=== PATIENT | male | born 1970 | race Caucasian/White ===

== ENCOUNTER 2018-03-06 13:04 | Emergency (ER) | payer BC, OTHER ==
[2018-03-06 13:06] VITALS: BMI 25.7
[2018-03-06 13:27] LABS: BASO # 0.03 K/mm3 (0.0-2.0); BASO % 0.4 % (0.0-3.0); EOS # 0.1 (0.0-0.7); EOS % 0.7 % (1.5-5.0); GRAN # 4.15 (1.4-6.5); GRAN % 61.3 % (50.0-68.0); HEMOGLOBIN 15.5 g/dL (14.0-18.0); MEAN CORPUSCULAR HEMOGLOBIN 30.9 pg (25.0-35.0); MEAN CORPUSCULAR HGB CONC 35.1 g/dl (31.0-37.0); MEAN PLATELET VOLUME 10.6 fl (7.0-11.0); MONO # 0.6 (0.1-0.6); MONO % 8.6 % (1.0-6.0); RBC 5.02 10^6/uL (3.5-6.1); RED CELL DISTRIBUTION WIDTH 13.3 % (11.5-14.5); WHITE BLOOD COUNT 6.8 10^3/ul (4.5-11.0)
[2018-03-06 13:36] LABS: INR 0.92; PARTIAL THROMBOPLASTIN TIME 32.3 Seconds (25.1-36.5); PROTHROMBIN TIME 10.5 SECONDS (9.4-12.5)
[2018-03-06 13:37] LABS: ALB/GLOB RATIO 1.4 (1.1-1.8); ALBUMIN 4.6 g/dL (3.0-4.8); ALT/SGPT 51 U/L (7-56); AST/SGOT 47 U/L (17-59); BLOOD UREA NITROGEN 9 mg/dL (7-21); CALCIUM 9.5 mg/dL (8.4-10.5); GFR AFRICAN-AMERICAN > 60; GFR NON-AFRICAN AMERICAN > 60
--- NOTE | 2018-03-06 13:41 | RAD ---
Date of service: 03/06/2018 HISTORY: chest pain COMPARISON: 03/24/2028. FINDINGS: LUNGS: The lungs are well inflated and clear. PLEURA: No significant pleural effusion identified, no pneumothorax apparent. CARDIOVASCULAR: Normal. OSSEOUS STRUCTURES: No significant abnormalities. VISUALIZED UPPER ABDOMEN: Normal. OTHER FINDINGS: None. IMPRESSION: No active pulmonary disease.
--- NOTE | 2018-03-06 13:46 | ED PDOC ---
Arrival/HPI - General Chief Complaint: Chest Pain Time Seen by Provider: 03/06/18 13:08 Historian: Patient - History of Present Illness Narrative History of Present Illness (Text): 03/06/18 13:38 47yo male with pmhx of hypertension, hyperlipdemia, CAD with cardiac stent 2013 present with complaint of chest pain that radiates to his right arm. He describes pain as "pressure". states pain started 2weeks ago, intermittent and then constant for a week . States he was seen at [facility] a week ago and was DC after a negative stress test. States he came here today because he continue to have chest pain. He states that he sees Dr. Garibay, and missed his appointment this year. He denies SOB, diaphoresis, fever, chills, nausea, vomiting, dizziness, abdominal pain, ripping/tearing upper back pain, LE edema, HERRMANN, calf pain, cough, recent travel. Past Medical History - Provider Review Nursing Documentation Reviewed: Yes - Infectious Disease Hx of Infectious Diseases: None - Tetanus Immunization Tetanus Immunization: Unknown - Past Medical History Past Medical History: No Previous - Cardiac Hx Hypertension: Yes Other/Comment: stent placement x 1 - Pulmonary Hx Respiratory Disorders: No - Neurological Hx Neurological Disorder: No - HEENT Hx HEENT Disorder: No - Renal Hx Renal Disorder: No - Endocrine/Metabolic Hx Endocrine Disorders: No - Hematological/Oncological Hx Blood Disorders: No - Integumentary Hx Dermatological Disorder: No - Musculoskeletal/Rheumatological Hx Falls: No Other/Comment: L HAND FX - Gastrointestinal Hx Gastrointestinal Disorders: No - Genitourinary/Gynecological Hx Genitourinary Disorders: No - Psychiatric Hx Psychophysiologic Disorder: No Hx Depression: No Hx Emotional Abuse: No Hx Physical Abuse: No Hx Substance Use: No - Past Surgical History Past Surgical History: No Previous - Surgical History Hx Cardiac Catheterization: Yes Hx Coronary Stent: Yes - Anesthesia Hx Anesthesia: Yes Hx Anesthesia Reactions: No - Suicidal Assessment Feels Threatened In Home Enviroment: No Family/Social History - Physician Review Nursing Documentation Reviewed: Yes Family/Social History: Unknown Family HX Smoking Status: Former Smoker Hx Alcohol Use: Yes Hx Substance Use: No Allergies/Home Meds Allergies/Adverse Reactions: Allergies No Known Allergies Allergy (Verified 10/18/14 12:19) Home Medications: Home Meds Medication Instructions Recorded Confirmed Aspirin [Adult Aspirin] 1 tab PO DAILY 03/06/18 03/06/18 Losartan Potassium [Losartan 1 tab PO DAILY 03/06/18 03/06/18 Potassium] Metoprolol Succinate XL [Toprol XL] 1 tab PO DAILY 03/06/18 03/06/18 Simvastatin [Zocor] 1 tab PO HS 03/06/18 03/06/18 Review of Systems - Physician Review All systems were reviewed & negative as marked: Yes - Review of Systems Constitutional: Normal Eyes: Normal ENT: Normal Respiratory: Normal Cardiovascular: Chest Pain. absent: Palpitations, Edema, Calf Pain, HERRMANN Gastrointestinal: Normal Genitourinary Male: Normal Musculoskeletal: Normal Skin: Normal Neurological: Normal Endocrine: Normal Hemo/Lymphatic: Normal Psychiatric: Normal Physical Exam Vital Signs Reviewed: Yes Vital Signs Temp Pulse Resp BP Pulse Ox 03/06/18 19:55 18 164/96 H 98 03/06/18 19:52 61 20 167/94 H 98 03/06/18 19:05 66 150/88 03/06/18 18:26 98.2 F 66 18 142/77 96 03/06/18 16:21 98.0 F 68 18 140/70 97 03/06/18 13:48 98.2 F 62 18 145/94 H 99 Temperature: Afebrile Blood Pressure: Normal Pulse: Regular Respiratory Rate: Normal Appearance: Positive for: Well-Appearing, Non-Toxic, Comfortable Pain Distress: None Mental Status: Positive for: Alert and Oriented X 3 - Systems Exam Head: Present: Atraumatic, Normocephalic Pupils: Present: PERRL Extroacular Muscles: Present: EOMI Conjunctiva: Present: Normal Mouth: Present: Moist Mucous Membranes Neck: Present: Normal Range of Motion Respiratory/Chest: Present: Clear to Auscultation, Good Air Exchange. No: Respiratory Distress, Accessory Muscle Use, Wheezes, Decreased Breath Sounds, Rales, Retracting, Rhonchi Cardiovascular: Present: Regular Rate and Rhythm, Normal S1, S2. No: Murmurs Abdomen: No: Tenderness, Distention, Peritoneal Signs Back: Present: Normal Inspection Upper Extremity: Present: Normal Inspection. No: Cyanosis, Edema Lower Extremity: Present: Normal Inspection. No: Edema Neurological: Present: GCS=15, CN II-XII Intact, Speech Normal Skin: Present: Warm, Dry, Normal Color. No: Rashes Psychiatric: Present: Alert, Oriented x 3, Normal Insight, Normal Concentration Medical Decision Making ED Course and Treatment: 03/06/18 20:32 Pt presented to ED for chest pain x two weeks. Lab was ordered and he had elevated troponin EKG NSR @61bpm CXR NAD ASA was given in ED. Pt with history of cardiac stent in 2014 here in [place]. Case was DW Dr. Melgar and pt was admitted to her serivce. After Dr. Newman who works with Dr. Melgar DC with Dr. Guerrero he requested that pt be transferred to [facility] in [place]. Dr. Newman spoke with the transfer center and pt was transferred to [facility], [place]. - Lab Interpretations Lab Results: 03/06/18 13:00 03/06/18 13:00 Lab Results 03/06/18 13:00: Sodium 139, Potassium 4.3, Chloride 100, Carbon Dioxide 29, Anion Gap 15, BUN 9, Creatinine 0.9, Est GFR ( Amer) > 60, Est GFR (Non- Af Amer) > 60, Random Glucose 126 H, Calcium 9.5, Magnesium 1.8, Total Bilirubin 0.6, AST 47, ALT 51, Alkaline Phosphatase 63, Lactate Dehydrogenase 448, Total Creatine Kinase 155, Troponin I 0.25 H*, Total Protein 7.8, Albumin 4.6, Globulin 3.2, Albumin/Globulin Ratio 1.4 03/06/18 13:00: PT 10.5, INR 0.92, APTT 32.3 03/06/18 13:00: WBC 6.8 D, RBC 5.02, Hgb 15.5, Hct 44.2, MCV 88.0, MCH 30.9, MCHC 35.1, RDW 13.3, Plt Count 186, MPV 10.6, Gran % 61.3, Lymph % (Auto) 29.0, [place] % (Auto) 8.6 H, Eos % (Auto) 0.7 L, Baso % (Auto) 0.4, Gran # 4.15, Lymph # (Auto) 2.0, [place] # (Auto) 0.6, Eos # (Auto) 0.1, Baso # (Auto) 0.03 - RAD Interpretation Radiology Orders: 03/06/18 13:14 CHEST PORTABLE [RAD] Stat - Medication Orders Current Medication Orders: Discontinued Medications Aspirin (Aspirin) 325 mg PO STAT STA Stop: 03/06/18 13:14 Last Admin: 03/06/18 14:26 Dose: 325 mg Aspirin (Ecotrin) 81 mg PO DAILY GOMEZ Atorvastatin Calcium (Lipitor) 20 mg PO HS GOMEZ Clopidogrel Bisulfate (Plavix) 300 mg PO STAT STA Stop: 03/06/18 18:27 Last Admin: 03/06/18 19:04 Dose: 300 mg Heparin Sodium (Porcine) (Heparin) 6,000 units 70 units/kg (6000 units) IV ONCE ONE PRN Reason: Protocol Stop: 03/06/18 14:37 Last Admin: 03/06/18 15:16 Dose: 6,000 units eMAR Start Stop Document 03/06/18 15:16 [email or web address] (Rec: 03/06/18 15:17 [email or web address] [id number]) Intravenous Solution Start Date 03/06/18 Start Time 15:17 MAR aPTT Document 03/06/18 15:16 [email or web address] (Rec: 03/06/18 15:17 [email or web address] [id number]) aPTT aPTT (secs) 32.3 Heparin Sodium/Sodium Chloride (Heparin 86578 Units/250ml 1/2 Normal Saline) 25 ,000 units in 250 mls @ 10.342 mls/hr IV .Q24H GOMEZ; 12 UNITS/KG/HR PRN Reason: Protocol Last Admin: 03/06/18 15:37 Dose: Heparin Sodium/Sodium Chloride (Heparin 37644 Units/250ml 1/2 Normal Saline) 25 ,000 units in 250 mls @ 10.211 mls/hr IV .Q24H GOMEZ; 12 UNITS/KG/HR PRN Reason: Protocol Last Admin: 03/06/18 15:28 Dose: 12 units/kg/hr, 10.211 mls/hr eMAR Start Stop Document 03/06/18 15:28 [email or web address] (Rec: 03/06/18 15:29 [email or web address] [id number]) Intravenous Solution Start Date 03/06/18 Start Time 15:29 MAR aPTT Document 03/06/18 15:28 [email or web address] (Rec: 03/06/18 15:29 [email or web address] [id number]) aPTT aPTT (secs) 32.3 Titration Intervention Document 03/06/18 15:28 [email or web address] (Rec: 03/06/18 15:29 [facility] [id number]) Titration Intake Waste Amount 0 Container Volume 250 Titration Dosing Titration Dose 12 IV Rate 10.211 Intake/Decrease Started Losartan Potassium (Cozaar) 100 mg PO DAILY GOMEZ Metoprolol Succinate (Toprol Xl) 50 mg PO DAILY GOMEZ Metoprolol Tartrate (Lopressor) 2.5 mg IVP ONCE ONE Stop: 03/06/18 18:24 Last Admin: 03/06/18 19:05 Dose: 2.5 mg IVP Administration Document 03/06/18 19:05 [facility] (Rec: 03/06/18 19:05 [facility] [id number]) Charges for Administration # of IVP Administrations 1 MAR Pulse and Blood Pressure Document 03/06/18 19:05 [email or web address] (Rec: 03/06/18 19:05 [facility] [id number]) Pulse Pulse Rate (60-90) 66 Blood Pressure Blood Pressure (100/60-150/90) 150/88 Morphine Sulfate (Morphine) 1 mg IVP Q4H PRN PRN Reason: Pain, severe (8-10) Last Admin: 03/06/18 15:33 Dose: 1 mg MAR Pain Assessment Document 03/06/18 15:33 [email or web address] (Rec: 03/06/18 15:33 [facility] [id number]) Pain Reassessment Is this a pain reassessment? No Sleep Is patient sleeping during reassessment? No Presence of Pain Presence of Pain Yes Pain Scale Used Pain Scale Used Numeric Location Pain Location Body Site Chest Description Description Constant Intensity of Pain at present 6 Pain Behavior Facial Grimacing Alleviating Factors/Management Medication Techniques Alleviating Factors Medication IVP Administration Document 03/06/18 15:33 [email or web address] (Rec: 03/06/18 15:33 [facility] [id number]) Charges for Administration # of IVP Administrations 1 Morphine Sulfate (Morphine) 2 mg IVP STAT ONE Stop: 03/06/18 18:20 Last Admin: 03/06/18 18:40 Dose: 2 mg MAR Pain Assessment Document 03/06/18 18:40 GMD (Rec: 03/06/18 18:41 [id number]) Pain Reassessment Is this a pain reassessment? No IVP Administration Document 03/06/18 18:40 GMD (Rec: 03/06/18 18:41 GMD [facility] [id number]) Charges for Administration # of IVP Administrations 1 Nitroglycerin (Nitrostat Sl Tab) 0.4 mg SL STAT STA Stop: 03/06/18 14:20 Last Admin: 03/06/18 14:26 Dose: 0.4 mg Nitroglycerin (Nitro-Bid 2% Oint) 1 ea TOP STAT STA Stop: 03/06/18 18:25 Last Admin: 03/06/18 19:04 Dose: 1 ea Disposition/Present on Arrival - Present on Arrival Any Indicators Present on Arrival: No History of DVT/PE: No History of Uncontrolled Diabetes: No Urinary Catheter: No History of Decub. Ulcer: No History Surgical Site Infection Following: None - Disposition Have Diagnosis and Disposition been Completed?: Yes Diagnosis: Chest pain Disposition: HOSPITALIZED Disposition Time: 13:50 Patient Plan: Admission Condition: STABLE
--- NOTE | 2018-03-06 13:46 | CP.PCM.HP ---
<Christen Medrano - Last Filed: 03/06/18 14:53> History of Present Illness - History of Present Illness History of Present Illness: CC: chest pain for 2 weeks HPI: 47yo male PMHx CAD s/p 1 stent (2013) and HTN presents with chest pain for 2 weeks. Patient reports pain began when he was mowing his lawn. He describes it as a constant dull pain 2-3/10 which intermittently worsens and becomes a 5-6 /10. Patient stated the pain was located in his right chest wall and radiated down his right arm and sometimes to his left side with no radiation up his jaw. He denied any exacerbating/alleviating factors. Patient reported he visited [facility] with similar complaints last week where he was admitted overnight and had a nuclear stress test and was worked up for cardiac chest pain which was all unremarkable. Patient denied any associated dyspnea at rest/ exertion, b/l leg swelling, palpitations, and diaphoresis. He also denied any travel history, sick contacts, recent illnesses. PMHx: CAD s/p 1 stent (2013) and HTN PSurgHx: denies Meds: Toprol XL 50mg po qd, Losartan 100mg po qd, ASA 81mg po qd, Simvastatin 40mg po hs ALL: NKDA PProcedures: cardiac cath 2014; nuclear stress test x 2 FamHx: mother with multiple CVAs, father with no medical issues, no medical issues in siblings/children SocHx: tobacco use 1ppd for 15 years (quit smoking 2 days ago), EtOH socially, denies drug use ROS: admits: intermittent chest pain denies: fever, chills, headache, dizziness, palpitations, SOB, ough, abd pain, nausea, vomiting, bowel/bladder complaints, pain/swelling in his legs b/l. PMD: Dr. Reina [last seen 2 days ago] Cardio: Dr. Harris [last seen 6 months - 1 year ago] Pharmacy: [facility] Present on Admission - Present on Admission Any Indicators Present on Admission: No Review of Systems - Review of Systems All systems: reviewed and no additional remarkable complaints except - Constitutional Constitutional: As Per HPI. absent: Chills, Fever - EENT Eyes: As Per HPI. absent: Blurred Vision Ears: As Per HPI. absent: Dizziness Nose/Mouth/Throat: As Per HPI. absent: Dysphagia, Sore Throat - Cardiovascular Cardiovascular: As Per HPI, Chest Pain, Pain Radiating to Arm/Neck/Jaw. absent : Dyspnea, Edema, Leg Edema, Palpitations - Respiratory Respiratory: As Per HPI. absent: Cough, Dyspnea, Chest Congestion - Gastrointestinal Gastrointestinal: As Per HPI. absent: Abdominal Pain, Constipation, Diarrhea, Nausea, Vomiting - Genitourinary Genitourinary: As Per HPI. absent: Dysuria, Hematuria - Musculoskeletal Musculoskeletal: As Per HPI. absent: Numbness, Tingling - Integumentary Integumentary: As Per HPI. absent: Dry Skin, Erythema - Neurological Neurological: As Per HPI. absent: Dizziness, Numbness, Headaches - Psychiatric Psychiatric: As Per HPI, Anxiety - Endocrine Endocrine: As Per HPI. absent: Polydipsia, Polyphagia, Polyuria - Hematologic/Lymphatic Hematologic: As Per HPI. absent: Easy Bleeding, Easy Bruising Past Patient History - Infectious Disease Hx of Infectious Diseases: None - Tetanus Immunizations Tetanus Immunization: Unknown - Past Social History Smoking Status: Former Smoker - CARDIAC Hx Hypercholesterolemia: Yes Hx Hypertension: Yes Other/Comment: stent placement x 1 - PULMONARY Hx Respiratory Disorders: No - NEUROLOGICAL Hx Neurological Disorder: No - HEENT Hx HEENT Problems: No - RENAL Hx Chronic Kidney Disease: No - ENDOCRINE/METABOLIC Hx Endocrine Disorders: No - HEMATOLOGICAL/ONCOLOGICAL Hx Blood Disorders: No - INTEGUMENTARY Hx Dermatological Problems: No - MUSCULOSKELETAL/RHEUMATOLOGICAL Hx Falls: No Other/Comment: L HAND FX - GASTROINTESTINAL Hx Gastrointestinal Disorders: No - GENITOURINARY/GYNECOLOGICAL Hx Genitourinary Disorders: No - PSYCHIATRIC Hx Psychophysiologic Disorder: No Hx Depression: No Hx Emotional Abuse: No Hx Physical Abuse: No Hx Substance Use: No - SURGICAL HISTORY Hx Cardiac Catheterization: Yes Hx Coronary Stent: Yes - ANESTHESIA Hx Anesthesia: Yes Hx Anesthesia Reactions: No Meds Allergies/Adverse Reactions: Allergies Allergy/AdvReac Type Severity Reaction Status Date / Time No Known Allergies Allergy Verified 10/18/14 12:19 Physical Exam - Constitutional Appears: Non-toxic, In Acute Distress (mild distress- c/o chest pain) - Head Exam Head Exam: ATRAUMATIC, NORMAL INSPECTION, NORMOCEPHALIC - Eye Exam Eye Exam: EOMI, Normal appearance, PERRL. absent: Conjunctival injection, Scleral icterus - ENT Exam ENT Exam: Mucous Membranes Moist - Neck Exam Neck exam: Positive for: Full Rom, Normal Inspection. Negative for: Lymphadenopathy - Respiratory Exam Respiratory Exam: Clear to Auscultation Bilateral, NORMAL BREATHING PATTERN. absent: Accessory Muscle Use, Chest Wall Tenderness, Rales, Rhonchi, Wheezes, Respiratory Distress - Cardiovascular Exam Cardiovascular Exam: REGULAR RHYTHM, RRR, +S1, +S2. absent: Systolic Murmur - GI/Abdominal Exam GI & Abdominal Exam: Normal Bowel Sounds, Soft. absent: Firm, Guarding, Rigid, Tenderness - Rectal Exam Rectal Exam: Deferred - Extremities Exam Extremities exam: Positive for: normal capillary refill, normal inspection, pedal pulses present. Negative for: pedal edema - Back Exam Back exam: NORMAL INSPECTION. absent: rash noted - Neurological Exam Neurological exam: Alert, CN II-XII Intact, Oriented x3 - Psychiatric Exam Psychiatric exam: Normal Affect, Normal Mood - Skin Skin Exam: Dry, Intact, Normal Color, Warm Results - Labs Result Diagrams: 03/06/18 13:00 03/06/18 13:00 Labs: Laboratory Results - last 24 hr 03/06/18 03/06/18 03/06/18 13:00 13:00 13:00 WBC 6.8 D RBC 5.02 Hgb 15.5 Hct 44.2 MCV 88.0 MCH 30.9 MCHC 35.1 RDW 13.3 Plt Count 186 MPV 10.6 Gran % 61.3 Lymph % (Auto) 29.0 [place] % (Auto) 8.6 H Eos % (Auto) 0.7 L Baso % (Auto) 0.4 Gran # 4.15 Lymph # (Auto) 2.0 [place] # (Auto) 0.6 Eos # (Auto) 0.1 Baso # (Auto) 0.03 PT 10.5 INR 0.92 APTT 32.3 Sodium 139 Potassium 4.3 Chloride 100 Carbon Dioxide 29 Anion Gap 15 BUN 9 Creatinine 0.9 Est GFR ( Amer) > 60 Est GFR (Non-Af Amer) > 60 Random Glucose 126 H Calcium 9.5 Magnesium 1.8 Total Bilirubin 0.6 AST 47 ALT 51 Alkaline Phosphatase 63 Lactate Dehydrogenase 448 Total Creatine Kinase 155 Total Protein 7.8 Albumin 4.6 Globulin 3.2 Albumin/Globulin Ratio 1.4 Assessment & Plan - Assessment and Plan (Free Text) Assessment: 47yo male PMHx CAD s/p 1 stent (2013) and HTN presents with chest pain for 2 weeks. Patient admitted to TELE to r/o ACS Plan: NSTEMI -troponin on admission 0.25 f/u troponin x 2 -EKG x 2: no acute ST elevations; NSR -Patient received SL Nitro 0.4mg and ASA 325mg po in the ED -Morphine 1mg ivp q4 prn pain (severe) -Patient has a hx of CAD s/p stent placed in 2013 -Cardiology Dr. Guerrreo consulted and patient was started on Heparin gtt -Patient to be transferred to [facility] for cardiac cath Hx of CAD -continue statin 20mg po hs -continue ASA 81mg po qd -continue home BP meds: Toprol xl 50mg po qd, Cozaar 100mg po qd Hx of HTN -Toprol xl 50mg po qd -Cozaar 100mg po qd Diet: NPO for cardiac cath DVT ppx: patient on heparin gtt Dispo: patient to be transferred to [facility] for cardiac cath Discussed with Dr. Palmer Medrano PGY3 <Rosalina Newman R - Last Filed: 03/07/18 14:14> Results - Vital Signs Recent Vital Signs: Last Vital Signs Temp 98.2 F 03/06/18 18:26 Pulse 61 03/06/18 19:52 Resp 18 03/06/18 19:55 BP 164/96 H 03/06/18 19:55 Pulse Ox 98 03/06/18 19:55 - Labs Result Diagrams: 03/06/18 13:00 03/06/18 13:00 Labs: Laboratory Results - last 24 hr 03/06/18 13:00 Troponin I 0.25 H* Attending/Attestation - Attestation I have personally seen and examined this patient.: Yes I have fully participated in the care of the patient.: Yes I have reviewed all pertinent clinical information: Yes Notes (Text): Patient seen and examined by me at 2:20PM with resident 03/06/18 and multiple times thereafter. Case including HPI, physical exam, and assessment and plan discussed with resident. Agree with above with following additions/corrections. Patient is a 47-year-old male with past medical history significant for coronary artery disease and hypertension that presented to the emergency room with worsening chest pain. Patient states that he has been having chest pain for approximately 2 weeks now. Pain was intermittent and has become constant for the past week. Pain is located across his chest and radiates to the right arm. He states that he was seen at [facility] on 02/27/2018. He states at that time they did not find any reason for his chest pain. He states that the pain continued. He noticed that it was worse today at work so he came into the emergency room. Patient states he did take aspirin this morning along with his other medications including metoprolol. He denies any associated diaphoresis, nausea, or shortness of breath. He denies any palpitations. No vomiting or abdominal pain. No fevers or chills. No headaches or dizziness. No dysuria. No diarrhea or constipation. 12 point review of systems reviewed by me. Please see HPI. All other systems are negative. Family History: Mom is alive and has history of a stroke and diabetes. Father is alive and has diabetes. Physical exam: General: Awake and alert sitting up in bed in no acute distress HEENT: Normocephalic atraumatic. Pupils equal reactive. No scleral icterus. Oropharynx is pink and moist. No pharyngeal erythema or exudate appreciated. Neck is supple. Hearing grossly intact. Ears and nose externally unremarkable Cardiovascular: Normal rhythm. Normal S1, S2. No murmurs, rubs, or gallops appreciated Pulmonary: Normal respiratory effort. No rhonchi, rales or wheezing appreciated. Gastrointestinal: Soft, nondistended, nontender. Positive bowel sounds all 4 quadrants, no guarding. Musculoskeletal: Normal range of motion all extremities, no calf tenderness, no edema appreciated. No anterior chest wall tenderness Central nervous system: AAOx3. CN2-12 grossly intact. 5/5 muscle strength all extremities. Dermatologic: Skin warm and dry Assessment and plan: Patient is a 47-year-old male with past medical history significant for coronary artery disease and hypertension that presented to the emergency room with worsening chest pain 1. Chest pain in a patient with coronary artery disease. Likely unstable angina. Troponin 0.25. EKG with no ST elevation or depression. Cardiology consulted. Patient was given aspirin 325 mg in the ED. Some morphine when necessary as needed for pain. Continue with aspirin. Case was discussed in detail with Dr. Guerrero. Per Dr. Guerrero, patient is being transferred to [facility] for cardiac catherization with Dr. Poole. This has been set up by ophthalmology assistant Dr. Guerrero. Continue Toprol Xl and Cozaar. Started on heparin drip. Troponins q6H. 2. History of CAD. Status post stent placement. Troponin elevated at 0.25. Patient being transferred to [facility] for cardiac catheterization. Continue aspirin, Toprol-XL, Cozaar, and statin 3. Hypertension. Continue Toprol-XL and Cozaar 4. History tobacco abuse. Patient counseled on staying tobacco free. Case was discussed in detail with the patient in cardiology Dr. Guerrero regarding current diagnosis and treatment plan.
[2018-03-06 14:15] LABS: TROPONIN I 0.25 ng/mL
[2018-03-06] MEDS ORDERED: Morphine 2 mg/ml ISec IVP PRN (14:39)
[2018-03-06] MEDS: Heparin25000 units/250ml 1/2NS 25,000 UNITS/250 ML BAG IV SCH ×2 (15:22→15:37)
[2018-03-06] MEDS ORDERED: Heparin 25,000units in 1/2NS 250 ML BAG IV SCH (15:30)
[2018-03-06] MEDS ORDERED: Morphine 2 mg/ml ISec IVP ONE (18:19)
[2018-03-06] MEDS ORDERED: Metoprolol 1 mg/ml Inj IVP ONE (18:23)
[2018-03-06] MEDS ORDERED: Nitroglycerin 2% Ointment Foilpak UD TOP STA (18:24)
[2018-03-06 18:27] VITALS: TEMP 98.2
--- NOTE | 2018-03-06 19:49 | CP.PCM.PN ---
<Emre Newman - Last Filed: 03/06/18 19:16> Subjective - Date & Time of Evaluation Date of Evaluation: 03/06/18 Time of Evaluation: 06:24 - Subjective Subjective: Emre Newman- Internal Medicine Resident Progress Note on Behalf of Hospitalist Team Paged by RN for completion of EMTALA form: Patient seen and examined at bedside. Admits to baseline chest pain. Offers no new complaints. Case endorsed to the Dr. Guerrero. Made aware of active chest pain, new EKG findings of t wave inversion in lead III, and recycled vitals. Instructed to complete forms for transfer to [facility]. Also instructed to give 2.5mg IV Lopressor, 300mg plavix, and 0.5 inch of nitro paste. Aforementioned orders placed. Patient to be transferred to [facility] under the care of Dr. Mehran Poole. Patient seen, case reviewed with, and plan approved by attending physician, Dr. Rosalina Newman. Objective - Vital Signs/Intake and Output Vital Signs (last 24 hours): Temp Pulse Resp BP Pulse Ox 98.2 F 66 18 150/88 96 03/06/18 18:26 03/06/18 19:05 03/06/18 18:26 03/06/18 19:05 03/06/18 18:26 - Medications Medications: Current Medications Aspirin (Ecotrin) 81 mg PO DAILY GOMEZ Atorvastatin Calcium (Lipitor) 20 mg PO HS GOMEZ Heparin Sodium/Sodium Chloride (Heparin 52086 Units/250ml 1/2 Normal Saline) 25 ,000 units in 250 mls @ 10.211 mls/hr IV .Q24H GOMEZ; 12 UNITS/KG/HR PRN Reason: Protocol Last Admin: 03/06/18 15:28 Dose: 12 units/kg/hr, 10.211 mls/hr Losartan Potassium (Cozaar) 100 mg PO DAILY GOMEZ Metoprolol Succinate (Toprol Xl) 50 mg PO DAILY GOMEZ Morphine Sulfate (Morphine) 1 mg IVP Q4H PRN PRN Reason: Pain, severe (8-10) Last Admin: 03/06/18 15:33 Dose: 1 mg - Labs Labs: 03/06/18 13:00 03/06/18 13:00 PT 10.5 SECONDS (9.4-12.5) 03/06/18 13:00 INR 0.92 03/06/18 13:00 APTT 32.3 Seconds (25.1-36.5) 03/06/18 13:00 <Rosalina Newman R - Last Filed: 03/07/18 14:21> Objective - Vital Signs/Intake and Output Vital Signs (last 24 hours): Temp Pulse Resp BP Pulse Ox 98.2 F 61 18 164/96 H 98 03/06/18 18:26 03/06/18 19:52 03/06/18 19:55 03/06/18 19:55 03/06/18 19:55 - Labs Labs: 03/06/18 13:00 03/06/18 13:00 PT 10.5 SECONDS (9.4-12.5) 03/06/18 13:00 INR 0.92 03/06/18 13:00 APTT 32.3 Seconds (25.1-36.5) 03/06/18 13:00 Attending/Attestation - Attestation I have personally seen and examined this patient.: Yes I have fully participated in the care of the patient.: Yes I have reviewed all pertinent clinical information, including history, physical exam and plan: Yes Notes (Text): Patient seen and examined by me at 5:30PM with resident 03/06/18. Case discussed with resident. Agree with above with following additions/corrections. Patient continues to have chest pain. Repeat EKG done with new shallow t-wave inversions in lead III. Case discussed via phone with Dr. Guerrero. Per Dr. Guerrero , patient given 2.5mg IV Lopressor, Plavix 300mg PO x 1 dose, and 0.5 inch of nitro paste. Patient was then transferred to [facility] under the care of Dr. Mehran Poole. Physical exam: General: Awake and alert sitting up in bed in no acute distress HEENT: Normocephalic atraumatic. Pupils equal reactive. No scleral icterus. Oropharynx is pink and moist. No pharyngeal erythema or exudate appreciated. Neck is supple. Hearing grossly intact. Ears and nose externally unremarkable Cardiovascular: Normal rhythm. Normal S1, S2. No murmurs, rubs, or gallops appreciated Pulmonary: Normal respiratory effort. No rhonchi, rales or wheezing appreciated. Gastrointestinal: Soft, nondistended, nontender. Positive bowel sounds all 4 quadrants, no guarding. Musculoskeletal: Normal range of motion all extremities, no calf tenderness, no edema appreciated. No anterior chest wall tenderness Central nervous system: AAOx3. CN2-12 grossly intact. 5/5 muscle strength all extremities. Dermatologic: Skin warm and dry
[2018-03-06 19:52] VITALS: PULSE 61; O2SAT 98
[2018-03-06 20:01] VITALS: BP 164/96; RESP 18
--- NOTE | 2018-03-06 20:51 | CARD ---
APPROVED REPORT Date of service: 03/06/2018 EKG Measurement Heart [id number] <Conclusion> Normal sinus rhythm Normal ECG
--- NOTE | 2018-03-06 20:54 | CARD ---
APPROVED REPORT Date of service: 03/06/2018 EKG Measurement Heart [id number] NM 150P55 [id number] <Conclusion> Normal sinus rhythm Normal ECG
--- NOTE | 2018-03-06 20:55 | CARD ---
APPROVED REPORT Date of service: 03/06/2018 EKG Measurement Heart [id number] [place] [id number] <Conclusion> Normal sinus rhythm Normal ECG
--- NOTE | 2018-03-07 07:30 | CP.PCM.DIS ---
Provider - Provider Date of Admission: 03/06/18 Attending physician: Dr. Palmer Newman Primary care physician: Dr. Reina Consults: Cardio: Dr. Guerrero Time Spent in preparation of Discharge (in minutes): 45 Hospital Course - Lab Results Lab Results: Most Recent Lab Values WBC 6.8 10^3/ul (4.5-11.0) D 03/06/18 13:00 RBC 5.02 10^6/uL (3.5-6.1) 03/06/18 13:00 Hgb 15.5 g/dL (14.0-18.0) 03/06/18 13:00 Hct 44.2 % (42.0-52.0) 03/06/18 13:00 MCV 88.0 fl (80.0-105.0) 03/06/18 13:00 MCH 30.9 pg (25.0-35.0) 03/06/18 13:00 MCHC 35.1 g/dl (31.0-37.0) 03/06/18 13:00 RDW 13.3 % (11.5-14.5) 03/06/18 13:00 Plt Count 186 10^3/uL (120.0-450.0) 03/06/18 13:00 MPV 10.6 fl (7.0-11.0) 03/06/18 13:00 Gran % 61.3 % (50.0-68.0) 03/06/18 13:00 Lymph % (Auto) 29.0 % (22.0-35.0) 03/06/18 13:00 [place] % (Auto) 8.6 % (1.0-6.0) H 03/06/18 13:00 Eos % (Auto) 0.7 % (1.5-5.0) L 03/06/18 13:00 Baso % (Auto) 0.4 % (0.0-3.0) 03/06/18 13:00 Gran # 4.15 (1.4-6.5) 03/06/18 13:00 Lymph # (Auto) 2.0 (1.2-3.4) 03/06/18 13:00 [place] # (Auto) 0.6 (0.1-0.6) 03/06/18 13:00 Eos # (Auto) 0.1 (0.0-0.7) 03/06/18 13:00 Baso # (Auto) 0.03 K/mm3 (0.0-2.0) 03/06/18 13:00 PT 10.5 SECONDS (9.4-12.5) 03/06/18 13:00 INR 0.92 03/06/18 13:00 APTT 32.3 Seconds (25.1-36.5) 03/06/18 13:00 Sodium 139 mmol/L (132-148) 03/06/18 13:00 Potassium 4.3 mmol/L (3.6-5.0) 03/06/18 13:00 Chloride 100 mmol/L (98-107) 03/06/18 13:00 Carbon Dioxide 29 mmol/L (21-33) 03/06/18 13:00 Anion Gap 15 (10-20) 03/06/18 13:00 BUN 9 mg/dL (7-21) 03/06/18 13:00 Creatinine 0.9 mg/dl (0.8-1.5) 03/06/18 13:00 Est GFR ( Amer) > 60 03/06/18 13:00 Est GFR (Non-Af Amer) > 60 03/06/18 13:00 Random Glucose 126 mg/dL (70-110) H 03/06/18 13:00 Calcium 9.5 mg/dL (8.4-10.5) 03/06/18 13:00 Magnesium 1.8 mg/dL (1.7-2.2) 03/06/18 13:00 Total Bilirubin 0.6 mg/dL (0.2-1.3) 03/06/18 13:00 AST 47 U/L (17-59) 03/06/18 13:00 ALT 51 U/L (7-56) 03/06/18 13:00 Alkaline Phosphatase 63 U/L (38-126) 03/06/18 13:00 Lactate Dehydrogenase 448 U/L (333-699) 03/06/18 13:00 Total Creatine Kinase 155 U/L (35-230) 03/06/18 13:00 Troponin I 0.25 ng/mL H* 03/06/18 13:00 Total Protein 7.8 g/dL (5.8-8.3) 03/06/18 13:00 Albumin 4.6 g/dL (3.0-4.8) 03/06/18 13:00 Globulin 3.2 gm/dL 03/06/18 13:00 Albumin/Globulin Ratio 1.4 (1.1-1.8) 03/06/18 13:00 - Hospital Course Hospital Course: Upon Admission 47yo male PMHx CAD s/p 1 stent (2013) and HTN presented with chest pain for 2 weeks. Patient reported pain began when he was mowing his lawn. He described it as a constant dull pain 2-3/10 which intermittently worsened and became a 5-6/ 10. Patient stated the pain was located in his right chest wall and radiated down his right arm and sometimes to his left side with no radiation up his jaw. He denied any exacerbating/alleviating factors. Patient reported he visited [facility] with similar complaints last week where he was admitted overnight and had a nuclear stress test and was worked up for cardiac chest pain which was all unremarkable. Patient denied any associated dyspnea at rest/ exertion, b/l leg swelling, palpitations, and diaphoresis. He also denied any travel history, sick contacts, recent illnesses. Hospital Course In the ED patient received 1 dose of ASA 325mg PO by mouth. During interviewing him, patient began to complain that his chest pain was worsening. His troponin returned and was elevated at 0.25. Patient's first EKG upon arrival was NSR @ HR 70bpm. When patient began to complain of active chest pain another EKG was done that showed NSR @ 67bpm. Patient received Sublingual Nitro 0.4mg and cardiology Dr. Guerrero was contacted. Patient was given a Heparin bolus and started on a heparin gtt. Dr. Guerrero contacted [facility] for transfer for cardiac cath. Later during the day patient began to complain of worsening chest pain again and new EKG findings showed t wave inversion in lead III. Patient was given 2.5mg IV Lopressor, 300mg plavix, and 0.5 inch of nitro paste. Patient 's vitals were stable and patient had EMTALA form signed for patient's transfer to [facility] (formerly [facility]3] under the care of Dr. Mehran Poole. Please note this is a discharge summary. For full hospital course please refer to hospital records. Discharge Exam - Head Exam Additional comments: patient was not examined by me prior to discharge and was examined by the night resident Dr. Emre Newman PGY2 and attending Dr. Palmer Newman. Discharge Plan - Follow Up Plan Condition: SERIOUS Disposition: OTHER INSTITUTION
[2018-03-07] MEDS ORDERED: Metoprolol Succinate 50 mg XL Tab PO SCH (10:00)
== END 2018-03-06 19:59 | disposition designated cancer center or children's hospital (05) ==
LOC: ED 13:04 → UNDOADMOB 13:47 → ERH 13:47 → ED 19:59
DX: R07.9 Chest pain, unspecified (principal); I25.10 Atherosclerotic heart disease of native coronary artery without angina pectoris; I10 Essential (primary) hypertension; E78.5 Hyperlipidemia, unspecified; Z95.5 Presence of coronary angioplasty implant and graft; Z87.891 Personal history of nicotine dependence
CPT/HCPCS: 71045; 80053; 82550; 83615; 83735; 84484; 85025; 85610; 85730; 93005; 96374; 96375; 96376; 99285; J1644; J2270